=== PATIENT | female | born 1975 | race Hispanic/Latino ===

== ENCOUNTER 2018-01-13 10:13 | Outpatient (CLI) | payer OTHER ==
[~2018-01-13 10:13] MED LIST: Gadobenate Dimeglumine 529 MG/1 ML (20ML VIAL) ONE
--- NOTE | 2018-01-13 12:08 | MRI ---
BRAIN MRI WITH AND WITHOUT CONTRAST: Date: 01/13/18 HISTORY: Headache in back of head that radiates to the front for many years. No reported injury. COMPARISON: None. TECHNIQUE: Brain MRI is performed with and without intravenous Gadolinium administration. Multisequential, multi planar imaging is performed. FINDINGS: No hemorrhage on the axial gradient echo sequence. No parenchymal mass, mass effect, or midline shift . Brain volume is age-appropriate. Cortical tobias-white matter differentiation is preserved. Ventricle s and sulci are patent and symmetric. Calvarium has a normal T1 marrow signal intensity. Midline brai n parenchymal structures are unremarkable. Central arterial flow-voids are maintained. Absent restric juan diffusion. No significant T2 or FLAIR white matter hyperintensities. Adequate aeration of the sin uses and mastoid air cells. No pathologic enhancement of the brain parenchyma. IMPRESSION: Unremarkable pre and postcontrast MRI of the brain. POS: [facility]
== END 2018-01-13 10:14 | disposition home or self-care (01) ==
LOC: TBSIIMAG 10:13
PROVIDERS: ATTEND Physician Assistant Surgical
DX: R51 Headache (principal)
CPT/HCPCS: 70553; A9579